=== PATIENT | female | born 1970 | race Two or more races ===

== ENCOUNTER 2018-06-05 09:38 | Outpatient (CLI) | payer OTHER ==
[~2018-06-05 09:38] MED LIST: CIPRO750 MG PO; FLEXERIL10 MG PO; NABUMETONE750 MG PO
== END 2018-06-05 09:48 | disposition home or self-care (01) ==
LOC: SONOGRAMA 09:38
DX: E04.1 Nontoxic single thyroid nodule (principal)

== ENCOUNTER → 2018-12-14 | Outpatient (CLI) | payer OTHER | END | disposition home or self-care (01) | LOC: NUCLEAR 10:19 | DX: C73 Malignant neoplasm of thyroid gland (principal); E89.0 Postprocedural hypothyroidism | CPT/HCPCS: 78018; 78020; A9528 ==